=== PATIENT | female | born 1980 | race Caucasian/White ===

== ENCOUNTER → 2016-11-04 | Outpatient (CLI) | payer BC ==
[2016-11-04 13:02] VITALS: BP 123/71
== END ==
LOC: MHUC 11:53
PROVIDERS: ATTEND Physician Assistant
DX: H69.81 Other specified disorders of Eustachian tube, right ear (principal)
CPT/HCPCS: 20610; 99213

== ENCOUNTER → 2016-11-15 | Outpatient (CLI) | payer BC ==
[2016-11-15 15:51] VITALS: BP 123/70
== END ==
LOC: MHUC 15:23
PROVIDERS: ATTEND Physician Assistant
DX: H66.91 Otitis media, unspecified, right ear (principal); K13.79 Other lesions of oral mucosa
CPT/HCPCS: 99213

== ENCOUNTER → 2017-01-16 | Outpatient (CLI) | payer BC ==
[~2017-01-16] MED LIST: AGM500T PO; CEFD300C PO; FERR325T36 PO; FLC1T PO; FLUO20CA42 PO; GBPN400C PO; HYDR-2013 PO; HYDR-3702 PO; HYDR-3754 PO; HYDR-3811 PO; OMEP20TA33 PO; TRIA1TAB18 PO
[2017-01-16 16:14] VITALS: BP 118/74
--- NOTE | 2017-01-16 16:14 | Urgent Care T Sheet Gen (E) ---
Intake General Temperature (Fahrenheit): 99.2 Pulse: 77 Blood Pressure Systolic: 118 Blood Pressure Diastolic: 74 Respirations: 18 SPO2: 97 Description of Symptoms Patient presents with recurrent R ear fullness and pain. 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 Patient has been seen several times over the past year regarding the R ear. Patient states that this current flare-up started approx 3 weeks ago. States the ear feels full and clogged. She is unable to pop it by yawning, etc. No nasal congestion. Patient has been taking Sudafed and been using nasal rinses without improvement. Patient just started taking Claritin a few days ago. Was last seen at Urgent Care in late September and early October. Was treated with IM steroid and Augmentin. Patient states her R ear has been a recurrent problem over the past [address] Merino and [facility] several years ago without improvement. Patient states they didn't do much for her. Has never had tubes in her ears. L hearing loss has been since . History of Present Illness Allergies: Coded Allergies: ibuprofen (Unverified Allergy, Unknown, 09/20/16) Unable to take r/t stomach bleeding. codeine phosphate (Verified Adverse Reaction, Unknown, n/v, 09/20/16) Home Meds Active Scripts Cefdinir 300 Mg [id number] Mg PO BID #20 CAP Prov:SADA STEVENSON 01/16/17 Amoxicillin/Clavulanate Potassium (Augmentin 500mg/125mg)1 Each Tablet1 Each PO BID Infection #20 TAB Ref 0 Prov:SADA STEVENSON 11/15/16 Hydrocodone Bit/Acetaminophen (Hydrocodon-Acetaminophen 5-325)1 Each Tablet1 Each PO Q4H Pain #15 TAB Prov:JANETH DILLARD MD 09/20/16 Hydrocodone/Acetaminophen ([place] 7.5mg/325mg)1 Ea Tablet1 Tab PO Q6H PRN PAIN # 15 TAB Ref 0 Prov:OMAR ARCE DO 08/11/14 Reported Medications Gabapentin 400 Mg Capsule1 Cap PO TID 09/20/16 Triamterene/Hydrochlorothiazid (Triamterene-HCTZ 37.5 mg/25 mg)1 Each Capsule1 Cap PO DAILY IN AM Ref 0 08/11/14 Fluoxetine HCl (Prozac)20 Mg [id number] Mg PO DAILY 05/22/13 Respiratory Constitutional Symptoms: No syptoms reported EENTM: Ear painNo Ear discharge Respiratory: No symptoms reported Cardiovascular: No symptoms reported Gastrointestinal/Abdominal: No symptoms reported All Other Systems Reviewed Remaining Systems: All other systems reviewed with negative findings Past Ktartbw-Slpzsv-Ydmjha Hx Patient's Social History Alcohol Use: Occasionally Uses Smoking Status: Current every day smoker Recent foreign travel: No Surgeries/Hospitalizations Hospitalization/Surgery Hx: csection 5 x Amniocentesis hyst appy gallbladder D&C EGD Respiratory Respiratory History: None Cardiovascular Cardiovascular History: Murmurs, None Comment: SONO IN January HEART CAME BACK NORMAL Neuro/Muscular Neuro/Muscular History: Visual impairment Reproductive System Sexually Transmitted Diseases: No Genitouinary Genitourinary History: None Comment: UTI IN JANUARY 2013 Gastrointestinal GI/Endocrine History: Anemia Diabetes Diabetes: No HEENT Impaired Vision: Contacts Hearing Impaired: None Integumentary Integumentary History: Other, see comments Comment: recent lac repair Cancer History of Cancer?: No Psychosocial Behavior Disorders: Depression Physical Exam Physical Exam General Appearance: WD/WN No apparent distress Eyes, Ears, Nose, Throat Ex: TM abnormal (R) (air fluid bubbles are noted. there is thick, white fluid noted behind the TM which is seen along the majority of the TM) Medications Administered Medications Adminstered: Kenalog (40mg IM injection into the L upper gluteal. Lot [id number] Exp March 2018) Departure Urgent Care Impression Impression: Primary Impression: Otitis media with effusion Qualified Code: H65.91 - Unspecified nonsuppurative otitis media, right ear Additional Impression: Eustachian tube dysfunction Qualified Code: H69.81 - Other specified disorders of Eustachian tube, right ear Departure Disposition: 01 HOME OR SELF-CARE Condition: Stable Referrals: ANURAG COLON MD (PCP) Additional Instructions: Long discussion with the patient regarding her ears. I have seen the patient several times over the past few months, always for R ear pain/fullness. I don' t know if her L hearing loss is due to some sort of anatomic abnormality or something else. I am beginning to wonder if there is some sort of anatomic abnormality in the R ear which is causing recurrent OM with effusion. Her R TM is never red or inflamed however there is quite a bit of thick, white fluid behind the TM. Patient has seen Dr Merino and a [facility] in the past and wasn't given a thorough evaluation, in my opinion. I have referred her to Dr Plummer and Dr Rod's office, who will see her next week. I appreciate the fast service! In the mean time, I have given her another steroid shot, her last one was in September. This will hopefully help with inflammation and swelling to the eustachian tube. I have also started her on Cefdinir for infection. She is to continue with Claritin daily. I have also instructed her to use Flonase daily. Return as needed. Patient understands DC instructions. All questions were answered. Scripts Cefdinir 300 Mg [id number] Mg PO BID #20 CAP Prov:SADA STEVENSON 01/16/17 End of report . SADA STEVENSON Jan 16, 2017 15:46
== END ==
LOC: MHUC 15:19
PROVIDERS: ATTEND Physician Assistant
DX: H65.91 Unspecified nonsuppurative otitis media, right ear (principal); H69.81 Other specified disorders of Eustachian tube, right ear
CPT/HCPCS: 99212